=== PATIENT | female | born 1960 | race American Indian/Alaskan Native ===

== ENCOUNTER 2016-10-31 09:14 | Emergency (ER) | payer MEDICARE ==
[2016-10-31 09:23] VITALS: BP 140/83
[2016-10-31] MEDS ORDERED: NORCO 5/325 PO ONE (12:11)
[2016-10-31] MEDS ORDERED: BOOSTRIX IM ONE ×2 (12:16)
--- NOTE | 2016-10-31 12:16 | Emergency Department Report ---
HPI - General Chief Complaint: Laceration/Recheck/Suture Time Seen by Provider: 10/31/16 10:36 - HPI HPI: 56-year-old female presents today with a laceration to her left shoulder that occurred at 7:30 this morning. Patient states that she has history of stroke with left-sided weakness. Patient was using her electric wheelchair when it acted up and she had the left side of her body on a wall. Denies change in sensation. Describes her pain as a 5 out of 10 constant ache. Denies fever, chills, nausea, vomiting, chest pain, shortness of breath, abdominal pain. ED Past Medical Hx - Past Medical History Hx Hypertension: Yes Hx CVA: Yes Hx Congestive Heart Failure: No Hx Diabetes: No Hx Arthritis: Yes Hx Psychiatric Treatment: Yes (depression) Hx Asthma: No Hx COPD: No - Surgical History Additional Surgical History: C section - Social History Smoking Status: Current Every Day Smoker - Medications Home Medications: Home Medications Medication Instructions Recorded Confirmed Last Taken Type Atenolol/Chlorthalidone [Tenoretic 1 tab PO DAILY 06/24/14 06/24/14 Unknown History 50-25 mg] Diltiazem HCl [Diltiazem ER] 120 mg PO DAILY 06/24/14 06/24/14 Unknown History Pantoprazole [Protonix] 20 mg PO BID #60 tablet. 06/25/14 Unknown Rx Simvastatin [Zocor TAB] 10 mg PO QHS #30 tablet 06/25/14 Unknown Rx Acetaminophen/Codeine [Tylenol #3] 1 tab PO Q6H PRN #14 tab 10/31/16 Unknown Rx Neomy/Baci/Polymyx Oint [Triple 10 applic TP QDAY #1 tube 10/31/16 Unknown Rx Antibiotic] ED Review of Systems ROS: Stated complaint: FALL/LT SHOULDER LAC Other details as noted in HPI Constitutional: denies: chills, fever, malaise Eyes: denies: eye pain ENT: denies: ear pain, throat pain, congestion Respiratory: denies: cough, shortness of breath, wheezing Cardiovascular: denies: chest pain, palpitations Endocrine: no symptoms reported Gastrointestinal: denies: abdominal pain, nausea, vomiting Musculoskeletal: denies: arthralgia Neurological: denies: headache, weakness, numbness, paresthesias Physical Exam - Physical Exam Vital Signs: Vital Signs 10/31/16 09:19 Temperature 98.5 F Pulse Rate 73 Respiratory 18 Rate Blood Pressure 140/83 O2 Sat by Pulse 100 Oximetry Physical Exam: GENERAL: The patient is well-developed and well-nourished. Patient is in NAD. HEAD: Normocephalic. Atraumatic. CHEST/LUNGS: Clear to auscultation throughout. HEART/CARDIOVASCULAR: Regular rate and rhythm. No murmurs, rubs or gallops. ABDOMEN: Abdomen is soft, nontender. No guarding or rebound tenderness. LEFT SHOULDER: Full range of motion. 3 cm superficial laceration noted over the anterior aspect of left shoulder. No active bleeding. Peripheral pulses intact. Capillary refill less than 2 seconds. NEURO: Alert and oriented 3, fluid speech, EOMs intact, normal facial sensation , assymetric upper and lower extremity strength and sensation (not new), GCS equals 15, finger to nose normal. ED Course Vital Signs 10/31/16 09:19 Temperature 98.5 F Pulse Rate 73 Respiratory 18 Rate Blood Pressure 140/83 O2 Sat by Pulse 100 Oximetry - Laceration /Wound Repair Left Shoulder Wound Location: upper extremity Wound Length (cm): 3 Wound's Depth, Shape: superficial Wound Explored: clean Irrigated w/ Saline (ccs): 500 Betadine Prep?: Yes Progress: Wound was closed using 5 shay. Patient tolerated procedure well. Wound care instructions provided. ED Medical Decision Making - Lab Data Vital Signs 10/31/16 09:19 Temperature 98.5 F Pulse Rate 73 Respiratory 18 Rate Blood Pressure 140/83 O2 Sat by Pulse 100 Oximetry - Medical Decision Making 56-year-old female presents today with a laceration to her right shoulder post contusion. Her laceration was closed using 5 shay. Patient tolerated the procedure well. Her tetanus status is updated today. Wound care instructions were provided. Patient is in no acute distress at this time. She will be discharged home and is encouraged to follow up with a primary care provider. She will be sent home on triple antibiotic ointment and Tylenol 3 and is encouraged to return to the emergency room for any worsening symptoms. Critical care attestation.: If time is entered above; I have spent that time in minutes in the direct care of this critically ill patient, excluding procedure time. ED Disposition Clinical Impression: Laceration Shoulder contusion Qualifiers: Encounter type: initial encounter Laterality: left Qualified Code(s): S40.012A - Contusion of left shoulder, initial encounter Disposition: DISCHARGED TO HOME OR SELFCARE Is pt being admited?: No Does the pt Need Aspirin: No Condition: Stable Instructions: Contusion in Adults (ED), Laceration (ED), Staple Care (ED) Additional Instructions: Have the shay removed in 8-10 days. Follow-up with your primary care provider. Return to the emergency department if symptoms worsen. Prescriptions: Acetaminophen/Codeine [Tylenol #3] 1 tab PO Q6H PRN #14 tab PRN Reason: Pain Neomy/Baci/Polymyx Oint [Triple Antibiotic] 10 applic TP QDAY #1 tube Referrals: PRIMARY CAREMD [Primary Care Provider] - 3-5 Days [facility] [Outside] - 3-5 Days JASWANT QUINTANILLA MD [Staff Physician] - 3-5 Days Forms: Work/School Release Form(ED) Time of Disposition: 12:21
== END 2016-10-31 12:51 | disposition home or self-care (01) ==
LOC: ED 09:14
DX: S40.012A Contusion of left shoulder, initial encounter (principal); I10 Essential (primary) hypertension; F17.200 Nicotine dependence, unspecified, uncomplicated; Z86.73 Personal history of transient ischemic attack (TIA), and cerebral infarction without residual deficits; Z87.39 Personal history of other diseases of the musculoskeletal system and connective tissue; W05.0XXA Fall from non-moving wheelchair, initial encounter; Y93.9 Activity, unspecified; Y92.9 Unspecified place or not applicable; Y99.9 Unspecified external cause status
CPT/HCPCS: 90471; 90715